=== PATIENT | male | born 1950 | race Caucasian/White ===

== ENCOUNTER → 2019-04-13 | Outpatient (CLI) | payer OTHER ==
[~2019-04-13] MED LIST: BLOOD PRESSURE MED; CHOLESTEROL MED; COZAAR 50MG50 MG/TAB PO; FLEXERIL 1010 MG/TAB PO; LORTAB 5/500 501 TAB PO; PREDNISONE10 MG PO; VITAMIN D1000 IU PO; ZOCOR 40MG40 MG PO
== END ==
LOC: COL.RAD 10:09
DX: K63.5 Polyp of colon (principal)

== ENCOUNTER 2021-10-29 12:57 | Emergency (ER) | payer MEDICARE ==
[~2021-10-29] VITALS: Ht 175.3 cm; Wt 109.1 kg
[2021-10-29 13:26] VITALS: BP 153/82; TEMP 97.6
[2021-10-29 14:02] VITALS: PULSE 72
== END 2021-10-29 14:02 | disposition home or self-care (01) ==
LOC: COL.ER 12:57
DX: M71.22 Synovial cyst of popliteal space [Baker], left knee (principal); Z87.891 Personal history of nicotine dependence

== ENCOUNTER 2022-10-05 12:04 | Emergency (ER) | payer MEDICARE ==
[~2022-10-05] VITALS: Ht 177.8 cm; Wt 103.6 kg
[2022-10-05 14:02] VITALS: BP 148/78; PULSE 68; TEMP 97.9
== END 2022-10-05 14:02 | disposition home or self-care (01) ==
LOC: COL.ER 12:04
DX: S09.90XA Unspecified injury of head, initial encounter (principal); S00.01XA Abrasion of scalp, initial encounter; Z23 Encounter for immunization; W21.04XA Struck by golf ball, initial encounter; Y93.53 Activity, golf; Y92.39 Other specified sports and athletic area as the place of occurrence of the external cause